=== PATIENT | female | born 1970 | race Caucasian/White ===

== ENCOUNTER 2023-05-16 13:07 | Emergency (ER) | payer MEDICARE, MEDICAID, SELFPAY ==
[2023-05-16 13:56] VITALS: BP 126/77; PULSE 70; RESP 18; TEMP 36.1; O2SAT 99; BMI 31.2
[2023-05-16] MEDS: Acetaminophen 325 MG TABLET 975 MG PO (14:30)
[2023-05-16] MEDS: Lidocaine HCl 1 % 20 ML VIAL 5 ML INFILTRATI (14:33)
--- NOTE | 2023-05-16 15:07 | ED_ITS ---
HPI - Wound/Laceration General Chief Complaint: Wound/Laceration Stated Complaint: Head Lac 05/16/23 Time Seen by Provider: 05/16/23 14:18 Source: patient Mode of arrival: ambulatory Limitations: no limitations History of Present Illness HPI narrative: 52 yo female with a history of HTN well controlled on Lisinopril presents to ED for evaluation head laceration following head trauma. She reports that she walking behind her car when the door of the truck suddenly closed and struck her on top of her head. She denies fall or LOC. She poured Bacardi ETOH on the wound prior to her arrival. Vaccination UTD, with recent Tdap recevied within the last year. She denies headache, confusion, nausea or vomiting, blurry vision, chest pain, or SOB. Onset (ago): hour(s) Location: scalp (Hairline) Place: home Patient tetanus UTD: Yes Context: accidental Associated symptoms: pain Treatments prior to arrival: other (Bacardi ETOH was poured on the laceration) Related Data Allergies Allergy/AdvReac Type Severity Reaction Status Date / Time atenolol Allergy Intermediate numbness Uncoded 05/16/23 14:24 Review of Systems Review of Systems: Yes all other systems are reviewed and are negative PMFSH Past Medical History Attestation statement: The following information was validated with the patient. Source: obtained from family, nursing notes reviewed and other (Patient) Social History Social History Advance Directives: No Physical Exam Vital Signs: Vital Signs: Last Vital Signs Temp 97 F 05/16/23 13:56 Pulse 70 05/16/23 13:56 Resp 18 05/16/23 13:56 BP 126/77 05/16/23 13:56 Pulse Ox 99 05/16/23 13:56 O2 Del Method Room Air 05/16/23 13:56 BMI result Body Mass Index 31.2 Const: General: comfortable, no acute distress, alert and awake Orientation/consciousness: patient oriented x3 HEENT: Head: Yes hematoma and Yes laceration (Mid hairline ) Ears: external ears normal Eyes: EOM: EOMs intact bilaterally Neck: Neck: Yes supple Resp: Effort & Inspection: normal respiratory effort and able to speak in complete sentences Skin: Trauma: laceration (Mid hairline ) Neuro: General: patient oriented x3 Cognition (Neuro): normal cognition Medications Administered Discontinued Medications Generic Name Dose Route Start Last Admin Trade Name Freq PRN Reason Stop Dose Admin Acetaminophen 975 mg 05/16/23 14:25 05/16/23 14:30 Acetaminophen 325 Mg Tablet PO 05/16/23 14:26 975 mg ONCE ONE Administration Ibuprofen 600 mg 05/16/23 14:25 05/16/23 14:31 Ibuprofen 600 Mg Tablet PO 05/16/23 14:26 Not Given ONCE ONE Lidocaine HCl 5 ml 05/16/23 14:25 05/16/23 14:33 Lidocaine Hcl 1 % 20 Ml Vial INFILTRATI 05/16/23 14:26 5 ml ONCE ONE Administration Oxycodone HCl 5 mg 05/16/23 15:03 05/16/23 15:08 Oxycodone Hcl Immed Release 5 Mg Tablet PO 05/16/23 15:04 5 mg ONCE ONE Administration Medical Decision Making Medical Decision Making MDM Narrative: 52 year old demale here for evaluation of a head injury. Sustained a lacteration to her hairline. No LOC, but she was dizziness. She is not on a blood thinner. No other injuries. Upon arrival she is no NAD, well appearing, vitals signs stable. On exam she 3cm laceration not actively bleeding. Tetanus is UTD. Head CT unnecessary according to [place] head CT rule. Wound was repaired she tolerated well. Pain was treated and she is stable to be discharged. Differential Diagnosis Differential Diagnoses: The differential diagnosis associated with the presentation includes Head laceration Head contusion Head fracture Head hematoma Concussion Tests considered The following testing was considered but not selected: Considered CT head but not indicated Prescription Management I considered prescription management with: Pain Medication Chronic Conditions Patient?s care impacted by: Hypertension Procedures Laceration Laceration 1: Site: scalp (Mid hairline) Size (cm): 3 Description: linear Depth: simple, single layer Local Anesthetic: lidocaine 1% Amount of anesthesia used (mL): 3 Pre-repair: irrigated extensively Skin layer closed with: other Size (cm): 5-0 Number of sutures: 3 Technique: simple, interrupted Critical Care Time Critical Care Time Critical Care Time: No Discharge Plan Discharge Clinical Impression: Laceration of head Patient Disposition: Home, Self-Care Instructions: Head Laceration (ED) Additional Instructions: You will need your stitches out in 5-7 days. See you doctor for this or come back to the ER and we will remove them. Do not get wet for 24 hours, after that you can briefly wash with soap and water then pat dry. Use bacitracin 2x per day. Keep wound clean and covered. Do not submerge in water, no swimming. Take Motrin or Tylenol for pain as needed If you develop signs of infection including increased pain, swelling, redness or drainage of pus come back to the ER for further evaluation.
[2023-05-16] MEDS: oxyCODONE HCl Immed Release 5 MG TABLET PO (15:08)
== END 2023-05-16 15:38 | disposition home or self-care (01) ==
PROVIDERS: Emergency Provider Emergency Medicine Emergency Medical Services; PCP Hospitalist
DX: S01.01XA Laceration without foreign body of scalp, initial encounter (principal); W20.8XXA Other cause of strike by thrown, projected or falling object, initial encounter; Y93.89 Activity, other specified; Y92.014 Private driveway to single-family (private) house as the place of occurrence of the external cause; Y99.9 Unspecified external cause status
CPT/HCPCS: 12002; 99283; 99284

== ENCOUNTER 2023-05-23 13:09 | Emergency (ER) | payer MEDICARE, MEDICAID, SELFPAY ==
[2023-05-23 13:36] VITALS: BP 129/87; PULSE 88; RESP 18; TEMP 36.2; O2SAT 98; BMI 32.2
--- NOTE | 2023-05-23 13:36 | ED.GENADULT ---
HPI - General Adult General Chief complaint: Wound/Laceration Stated complaint: stiches removal Time Seen by Provider: 05/23/23 13:41 Source: patient Mode of arrival: ambulatory Limitations: no limitations History of Present Illness HPI narrative: 52 yo female here for suture removal from her head. She had 3 sutures placed on 05/16. No complaints. Related Data Allergies Allergy/AdvReac Type Severity Reaction Status Date / Time atenolol Allergy Intermediate numbness Uncoded 05/16/23 14:24 Review of Systems Review of Systems: Yes all other systems are reviewed and are negative Constitutional: Constitutional: Reports no additional constitutional complaints, Denies body ache(s), Denies chills, Denies fever(s), Denies headache(s) and Denies weakness Eyes: Eyes: Reports no additional eye complaints and Denies change in vision ENT: Reports system reviewed and no additional complaints, except as documented, Denies dizziness, Denies headache(s), Denies nasal congestion, Denies nasal discharge and Denies neck pain Cardiovascular: Cardiovascular: Reports no additional cardiovascular complaints, Denies chest pain, Denies leg edema and Denies dyspnea Respiratory: Respiratory: Reports no additional respiratory complaints, Denies cough and Denies dyspnea Gastrointestinal: Gastrointestinal: Reports no additional gastrointestinal complaints, Denies abdominal pain, Denies diarrhea, Denies nausea and Denies vomiting Genitourinary: Genitourinary: Reports no additional female genitourinary complaints and Denies urinary incontinence Musculoskeletal: Musculoskeletal: Reports no additional musculoskeletal complaints, Denies back pain, Denies arthralgias, Denies joint swelling, Denies neck pain, Denies numbness and Denies tingling Integumentary/Breasts: Skin/Breast: Reports system reviewed and no additional complaints, except as docu and Denies rash Neurologic: Reports system reviewed and no additional complaints, except as documented, Denies dizziness, Denies headache(s), Denies numbness, Denies tingling and Denies weakness PMFSH Past Medical History Attestation statement: The following information was validated with the patient. Source: old records reviewed and nursing notes reviewed Social History Social History Advance Directives: No Advance Directives Information Provided: Yes Physical Exam ED Vital Signs: Vital Signs - 24 hr 05/23/23 13:36 Temperature 97.1 F Pulse Rate 88 Respiratory Rate 18 Blood Pressure 129/87 Pulse Oximetry 98 Oxygen Delivery Method Room Air BMI result Body Mass Index 32.2 Const General: cooperative, healthy appearing and comfortable Orientation/consciousness: patient oriented x3 Limitations: no limitations HENMT Head: Yes normal to inspection Head images: 1. 3 sutures present. Edges are approximated. No drainage, erythema or swelling Eyes General: appearance normal, both eyes and all related structures Neck Neck: Yes normal visual inspection Chest Chest palpation & inspection: normal inspection of the chest Resp Effort & Inspection: normal respiratory effort Cardio Peripheral pulses: Peripheral pulses 2+ throughout GI Inspection: Yes normal to inspection Back/Spine/Pelvis Thoracic/Lumbar Spine: thoracic and lumbar spine normal to inspection Skin General skin exam: no rashes or lesions noted Neuro General: patient oriented x3 and moves all extremities Procedures Procedure Narrative Procedure Narrative: Three sutures removed from the forehead. No active bleeding, erythema, drainage. Edges are approximated Medical Decision Making Medical Decision Making MDM Narrative: 52 yo female here seeking suture removal. No complaints. See procedure note. Differential Diagnosis Differential Diagnoses: The differential diagnosis associated with the presentation includes Suture removal Discharge Plan Discharge Clinical Impression: Visit for suture removal Patient Disposition: Home, Self-Care Instructions: Stitches Removal (ED) Interventions: ED Discharge Assessment Last Done: 05/23/23 13:51 Discharge Date/Time: 05/23/23 13:51
== END 2023-05-23 13:51 | disposition home or self-care (01) ==
LOC: HO.ED 13:44
PROVIDERS: Emergency Provider Emergency Medicine; PCP Hospitalist
DX: Z48.02 Encounter for removal of sutures (principal)
CPT/HCPCS: 99282

== ENCOUNTER 2023-06-02 13:10 | Emergency (ER) | payer MEDICARE, MEDICAID, SELFPAY ==
[2023-06-02 13:16] VITALS: BP 128/79; PULSE 78; RESP 18; TEMP 36.6; O2SAT 100; BMI 34.2
--- NOTE | 2023-06-02 13:17 | ED.GENADULT ---
HPI - General Adult General Chief complaint: Animal Bite Stated complaint: Lower Arm Lac 06/02/23 Time Seen by Provider: 06/02/23 13:42 Source: patient and family (patient's ) Mode of arrival: ambulatory Limitations: no limitations History of Present Illness HPI narrative: Patient is a 52 year old assigned female at with a history of HTN presenting to the emergency department today after a dog bite to the right forearm. Patient states that she got bit while trying to feed her dog. Patient states that the dog is up to date on all of his shots. Patient denies any dizziness, lightheadedness, abdominal pain, nausea, vomiting, fever, chills, blurry vision, double vision, loss of vision, chest pain, difficulty breathing, shortness of breath, back pain, night sweats, pain with urination, increased urinary frequency, increased urinary urgency, blood in her urine or stool, syncope or a near syncopal episode, bowel incontinence, bladder incontinence, bowel retention, bladder retention, or any other complaints at this time. Onset (ago): minute(s) Location: right and upper extremity Radiation: non-radiation Severity: mild Severity scale (1-10): 4 Quality: aching and dull Pain Consistency: constant Relieving factors: none Exacerbating factors: none Associated symptoms: denies other symptoms Treatments prior to arrival: none Related Data Previous Rx's Medication Instructions Recorded amoxicillin 875 mg-potassium 1 tab PO BID 10 days #20 tabs 06/02/23 clavulanate 125 mg tablet Allergies Allergy/AdvReac Type Severity Reaction Status Date / Time atenolol Allergy Intermediate numbness Uncoded 05/16/23 14:24 Review of Systems Constitutional: Constitutional: Reports no additional constitutional complaints, Denies chills, Denies fever(s) and Denies night sweats Eyes: Eyes: Reports no additional eye complaints, Denies blurry vision, Denies change in vision, Denies diplopia, Denies eye discharge, Denies loss of vision and Denies eye pain ENT: Denies dizziness Cardiovascular: Cardiovascular: Reports no additional cardiovascular complaints, Denies chest pain, Denies lightheadedness, Denies Loss of Consciousness and Denies dyspnea Respiratory: Respiratory: Reports no additional respiratory complaints and Denies dyspnea Gastrointestinal: Gastrointestinal: Reports no additional gastrointestinal complaints, Denies abdominal pain, Denies melena, Denies hematochezia, Denies change in bowel habits and Denies change in stool character Genitourinary: Genitourinary: Denies hematuria, Denies urinary frequency, Denies dysuria, Denies urinary incontinence, Denies urinary hesitancy and Denies urinary urgency Musculoskeletal: Musculoskeletal: Reports no additional musculoskeletal complaints, Denies numbness and Denies tingling Comments: dog bite to right forearm Neurologic: Denies dizziness, Denies loss of vision, Denies numbness and Denies tingling Psychiatric: Psychiatric: Reports no additional psychiatric complaints Endocrine: Endocrine: Reports no additional endocrine complaints Hematologic/Lymphatic: Hematologic/Lymphatic: Reports no additional hematologic/lymphatic complaints Allergic/Immunologic: Allergic/Immunologic: Reports no additional allergic/immunologic complaints PMFSH Past Medical History Attestation statement: The following information was validated with the patient. Source: old records reviewed, obtained from family (patient's provided additional history and confirmed the history provided by the patient.) and nursing notes reviewed Social History Social History Advance Directives: No Advance Directives Information Provided: No Physical Exam ED Vital Signs: Vital Signs - 24 hr 06/02/23 13:16 Temperature 97.8 F Pulse Rate 78 Respiratory Rate 18 Blood Pressure 128/79 Pulse Oximetry 100 Oxygen Delivery Method Room Air BMI result Body Mass Index 34.2 Const General: cooperative, no acute distress, alert and awake Nutritional Appearance: well nourished Orientation/consciousness: patient oriented x3 Limitations: no limitations HENMT Head: Yes normal to inspection and Yes atraumatic Ears: hearing grossly normal bilaterally and external ears normal General nose exam: Normal external nose present, no nasal discharge noted and no epistaxis Face and sinus: Yes normal facial exam, No abrasion and No laceration Mouth: Normal oral and palatal mucosa present, no drooling and no muffled voice Eyes General: appearance normal, both eyes and all related structures Periorbital: periorbital findings normal Eyelids: Yes eyelids normal Conjunctivae: conjunctivae normal Pupils: Equal, round and reactive pupils present EOM: EOMs intact bilaterally Neck Neck: Yes normal visual inspection, Yes full ROM and Yes no lymphadenopathy Chest Chest palpation & inspection: normal inspection of the chest Resp Effort & Inspection: normal respiratory effort and able to speak in complete sentences GI Inspection: Yes normal to inspection Neuro General: patient oriented x3 and moves all extremities Cranial nerves: Yes Equal, round and reactive pupils present Cognition (Neuro): normal cognition Motor exam (neuro): 5/5 motor strength present throughout Sensory Exam: Normal double simultaneous stimulation for sensation Coordination: [id number] test normal Extrem Other: 3 small puncture wounds to the right upper forearm, all smaller than 1cm, none gaping and none bleeding. General: Yes full ROM and Yes capillary refill normal Psych Appearance: grossly normal Mental Status: mental status grossly normal Affect: normal affect Attitude: cooperative Thought process: Normal thought process present Thought content: Normal thought content present Insight: Good insight present (Psych) Course Course Course Narrative: This is a rapid medical exam: Additional HPI, ROS, PE not included below will be deferred to primary provider. Patient is a 52-year-old female presenting to the emergency department with dog bite to right forearm. States she got her arm too close to the food bowl. States dog was abandoned for a week in [place] so is food aggressive. States dog is UTD on vaccinations. Tetanus is UTD. Medical Decision Making Medical Decision Making [facility] Narrative: Patient is a 52 year old assigned female at with a history of HTN presenting to the emergency department today after being bit by a dog. Patient's physical exam was as noted in the physical exam portion of this chart. I explained my physical exam findings to the patient and the patient's . I answered all questions asked by the patient and the patient's . I thoroughly cleaned the patient's puncture wounds and dressed them appropriately. I stressed the importance of the patient taking her medication as prescribed. I stressed the importance of the patient following up with her primary care provider. I stressed the importance of the patient returning to the emergency department immediately if her symptoms were to worsen or if she were to develop any dizziness, shortness of breath, difficulty breathing, chest pain, blurry vision, loss of vision, nausea, vomiting, abdominal pain, fever, chills, back pain, or any other complaints. Patient and the patient's verbalized agreement and understanding with this treatment plan and discharge. Differential Diagnosis Differential Diagnoses: The differential diagnosis associated with the presentation includes Dog bite Puncture wound Laceration Abrasion Independent Historian Clinical information obtained from an independent historian. History obtained from or confirmed by: Spouse (patient's provided additional history and confirmed the history provided by the patient. ) Discharge Plan Discharge Clinical Impression: Dog bite Patient Disposition: Home, Self-Care Instructions: Animal Bite (ED) Additional Instructions: Perform daily wound checks and dressing changes. Follow up with your primary care provider. Return to the emergency department immediately if your symptoms worsen or if you develop any dizziness, shortness of breath, difficulty breathing, chest pain, blurry vision, loss of vision, nausea, vomiting, abdominal pain, fever, chills, back pain, or any other complaints. Prescriptions: New amoxicillin-pot clavulanate 875-125 mg tablet 1 tab PO BID 10 Days Qty: 20 0RF Referrals: Stephanie Acevedo MD [Primary Care Provider] - Interventions: ED Discharge Assessment Last Done: 06/02/23 14:27 Discharge Date/Time: 06/02/23 14:27 Print Language: Kittitian
== END 2023-06-02 14:27 | disposition home or self-care (01) ==
PROVIDERS: Emergency Provider Emergency Medicine Emergency Medical Services; PCP Hospitalist
DX: S51.851A Open bite of right forearm, initial encounter (principal); M79.601 Pain in right arm; W54.0XXA Bitten by dog, initial encounter; Y93.9 Activity, unspecified; Y92.9 Unspecified place or not applicable; Y99.9 Unspecified external cause status
CPT/HCPCS: 99282; 99283

== ENCOUNTER 2024-01-08 10:45 | Outpatient (AMB) | payer MEDICARE, MEDICAID, SELFPAY ==
--- NOTE | 2024-01-08 11:33 | MHC.OFFWIV ---
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 Patient noticed a small rash on the right side of the abdomen. Does not recall or noticed any tick bite. Rash is itchy. PFSH Social History Patient Tobacco Use Status: Never used Tobacco Physical Exam Vital Signs: Last Vital Signs Temp 97.4 F 01/08/24 11:36 Pulse 65 01/08/24 11:36 BP 130/80 01/08/24 11:36 Pulse Ox 98 01/08/24 11:36 Oxygen Delivery Method Room Air 01/08/24 11:36 BMI result Body Mass Index 35.7 Skin Other: Abdomen: Small 2 cm circular rash around a papule. No tenderness. Assessment & Plan Assessment & Plan (1) Rash: Code(s): R21 - Rash and other nonspecific skin eruption Plan: Very unlikely a tick bite. However lyme testing in three weeks. No abx needed. Hydrocortisone cream for itching prescribed. Orders: Orders Lyme IgG/IgM w/reflex to WB 01/29/24 R21 - Rash and other nonspecific skin eruption Coding Level of Care Code New Pt Level 3 (23376) Diagnoses Rash R21
[2024-01-08 11:36] VITALS: BP 130/80; PULSE 65; TEMP 36.3; O2SAT 98; BMI 35.7
== END 2024-01-08 12:06 | disposition home or self-care (01) ==
PROVIDERS: Visit Provider Internal Medicine
DX: R21 Rash and other nonspecific skin eruption (principal)
CPT/HCPCS: 99203

== ENCOUNTER → 2024-03-18 08:10 | Outpatient (BNVA) | payer MEDICARE, MEDICAID, SELFPAY | PROVIDERS: PCP Nurse Practitioner Family; Visit Provider Physician Assistant Surgical ==

== ENCOUNTER 2024-04-12 08:12 | Outpatient (AMB) | payer MEDICARE, MEDICAID, SELFPAY ==
--- NOTE | 2024-04-12 08:13 | MHC.OFFWIV ---
Intake Vital Signs 04/12/24 08:14 Height 5 ft Weight 203 lb BMI 39.6 BP 104/72 Blood Pressure Location Lt brachial Position Sitting Pulse 78 Pulse Source Pulse Oximeter Temp 98.2 F Temp Source Oral Pulse Oximetry (%) 97 Oxygen Delivery Method Room Air Intake Visit Reasons: EP Lump LT leg/pain behind RT knee/Asthma Intake Note: pt here c/o lump on LT foot x 1 month, pain behind RT knee x 1 week, Asthma symptoms. Hurts more when going up/down stairs Patient Tobacco Use Status: Never used Tobacco Allergies atenolol Allergy (Intermediate, Uncoded 04/12/24 08:14) numbness Do you need a note to return to daycare/school/sports/work: No HPI HPI Comments History of Present Illness Details Patient is a 53 year old female past medical history of asthma who is currently switching primary care doctors to a PCP at this clinic. She has multiple complaints. Her 1st complaint is that she has been unable to refill her asthma medications, she states she takes an albuterol inhaler, albuterol nebulizers and the Breo inhaler twice daily. She is also complaining of a lump on her left foot, she states she was told it was a fibroma, as she has a hx of these and she has seen a surgeon about it, she was told to try diclofenac gel which she states she has not tried yet. Her 3rd complaint is pain behind her right knee x several weeks which is getting worse, she states it feels like it is going to give out on her because it hurts so much. She has not tried taking any medications for this or wrapping it. [facility] Social History (System 01/23/24 @ 12:55 by Ana Solares) Patient Tobacco Use Status: Never used Tobacco Review of Systems Const All systems reviewed & are unremarkable except as noted in HPI and below Physical Exam Vital Signs: Last Vital Signs Temp 98.2 F 04/12/24 08:14 Pulse 78 04/12/24 08:14 BP 104/72 04/12/24 08:14 Pulse Ox 97 04/12/24 08:14 Oxygen Delivery Method Room Air 04/12/24 08:14 BMI result Body Mass Index 39.6 Const General: cooperative, healthy appearing, comfortable, no acute distress and well developed Orientation/consciousness: patient oriented x3 Limitations: no limitations HEENT Head: Yes normal to inspection Eyes General: appearance normal, both eyes and all related structures Neck Neck: Yes normal visual inspection and Yes full ROM Resp Effort & Inspection: normal respiratory effort and able to speak in complete sentences Skin General skin exam: no rashes or lesions noted Neuro General: patient oriented x3 Extrem Right lower extremity: knee Details: tenderness (Posterior), swelling (Posterior) and normal ROM Left lower extremity: foot (4cm round lump on mid dorsal foot, no erythema or signs of infection noted) Assessment & Plan Assessment & Plan (1) Asthma: Code(s): J45.909 - Unspecified asthma, uncomplicated Qualifiers: Asthma complication type: unspecified Asthma persistence: unspecified Asthma severity: unspecified severity Qualified Code(s): J45.909 - Unspecified asthma, uncomplicated Plan: Refilled inhalers for 30 days with [facility] via telephone, albuterol pump, duoneb nebs, Advair 115-21 (they had no records of the patient being on a Breo); patient to make appointment to see a PCP within this office REINALDO. (2) Mujica's cyst of knee: Code(s): M71.20 - Synovial cyst of popliteal space [Mujica], unspecified knee Qualifiers: Laterality: right Qualified Code(s): M71.21 - Synovial cyst of popliteal space [Mujica], right knee Plan: Advised RICE, if no improvement, we can send to Orthopedics for evaluation (3) Fibroma of foot: Code(s): D21.20 - Benign neoplasm of connective and other soft tissue of unspecified lower limb, including hip Qualifiers: Laterality: left Qualified Code(s): D21.22 - Benign neoplasm of connective and other soft tissue of left lower limb, including hip Plan: Recommended to follow up with her surgeon if the diclofenac gel does not help. Plan Patient also enquiring about Lyme disease results from January, shared they were negative. Medications: Discontinued amoxicillin-pot clavulanate 875-125 mg Discontinued Reason: Patient Completed Course 1 tab PO BID 10 days 20 tabs 0RF Coding Level of Care Code New Pt Level 4 (39967) Diagnoses Asthma, unspecified asthma severity, unspecified whether complicated, unspecified whether persistent J45.909 Asthma complication type: unspecified Asthma persistence: unspecified Asthma severity: unspecified severity Synovial cyst of right knee M71.21 Laterality: right Fibroma of left foot D21.22 Laterality: left
[2024-04-12 08:14] VITALS: BP 104/72; PULSE 78; TEMP 36.8; O2SAT 97; BMI 39.6
== END 2024-04-12 09:16 | disposition home or self-care (01) ==
PROVIDERS: PCP Nurse Practitioner Family; Visit Provider Physician Assistant
DX: J45.909 Unspecified asthma, uncomplicated (principal); M71.21 Synovial cyst of popliteal space [Baker], right knee; D21.22 Benign neoplasm of connective and other soft tissue of left lower limb, including hip
CPT/HCPCS: 99204

== ENCOUNTER 2024-04-15 10:49 | Outpatient (AMB) | payer MEDICARE, MEDICAID, SELFPAY ==
[2024-04-15 11:09] VITALS: BP 110/76; PULSE 68; O2SAT 98; BMI 39.4
--- NOTE | 2024-04-15 11:09 | A.OFFPC_ITS ---
Vital Signs 04/15/24 11:09 Height 5 ft Weight 202 lb BMI 39.4 BP 110/76 Blood Pressure Location Rt brachial Position Sitting Pulse 68 Pulse Source Pulse Oximeter Pulse Oximetry (%) 98 Oxygen Delivery Method Room Air Intake Visit Reasons: Est Care LT foot Lump/pain behind RT Knee Intake Note: Pt here for f/u from walk-in visit for LT foot lump, RT knee pain Allergies atenolol Allergy (Intermediate, Uncoded 08/07/24 01:00) numbness Medication List - Last Reconciled 08/07/24 by Sandra Salmeron MD albuterol sulfate 90 mcg/actuation 1 puff inhalation QID fluticasone propion-salmeterol 250-50 mcg/dose (Advair Diskus) 1 inh inhalation BID semaglutide (weight loss) 1 mg (0.5 mL) subcut QWEEK Tobacco use date assessed: 04/15/24 Dental Screening Dental Screen Date: 04/15/24 HPI HPI Comments History of Present Illness Details Patient is a 53-year-old female who I am meeting for the 1st time. Patient has complaint of fibromas of bilateral feet. As per patient , she has had surgery on right foot to remove this. States she now has a fibroma on her left foot dorsal aspect over the metatarsal. This is making it difficult to walk. unable to dorsiflex and to put on shoes. 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 Utilize diclofenac sodium with no relief. Patient also has palpable mass behind her right knee. States that the mass has been there for several months, however it is become more rigid and is causing discomfort. 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 Has family history of clotting disorder, will order stat ultrasound today. [facility] Medical History Anxiety Hypertension Surgical History Hx of breast reduction, elective History of tubal ligation H/O liposuction of abdomen History of cataract surgery Family History Mother Clot Social History Housing: House Patient Tobacco Use Status: Never used Tobacco service: No Current occupational status: employed Current occupational exposures/hazards: No Cognitive needs: No Hearing needs: No Vision needs: No Questionnaire PHQ-9 Over the last 2 weeks, how often have you been bothered by any of the following problems? 1. Little interest or pleasure in doing things: several days 2. Feeling down, depressed, or hopeless: several days 3. Trouble falling or staying asleep, or sleeping too much: nearly every day 4. Feeling tired or having little energy: more than half the days 5. Poor appetite or overeating: nearly every day 6. Feeling bad about yourself - or that you are a failure or have let yourself or your family down: not at all 7. Trouble concentrating on things, such as reading the newspaper or watching television: nearly every day 8. Moving or speaking so slowly that other people could have noticed. Or the opposite - being so fidgety or restless that you have been moving around a lot more than usual: several days 9. Thoughts that you would be better off or of hurting yourself in some way: not at all Total score: 14 Depression Screening Interpretation: Positive Depression Screening Follow-up: Existing condition and In treatment (Establish care with psychiatrist) Depression Screening Done: Yes 47423 - PHQ-9 Billing: Yes Source: Developed by Drs. Ky Reza, Vinita Ulloa, Cem Alcantara and colleagues, with an educational ayush from [employer]. AUDIT C Alcohol Use Questionnaire (AUDIT-C) 1. How often do you have a drink containing alcohol?: Never Total Score: 0 POORNIMA-7 AMB Questionnaire POORNIMA-7 Date POORNIMA - 7 assessed: 04/15/24 Feeling nervous, anxious, or on edge: 3 = Nearly every day Not being able to stop or control worryin = Nearly every day Worrying too much about different things: 2 = More than half the days Trouble relaxin = More than half the days Being so restless that it is hard to sit still: 2 = More than half the days Becoming easily annoyed or irritable: 1 = Several days Feeling afraid as if something awful might happen: 3 = Nearly every day Total POORNIMA-7 score (0-4 normal; 5-9 mild; 10-14 moderate; 15-21 severe): 16 Source: Developed by Drs. Ky Reza, Vinita Ulloa, Cem Alcantara and colleagues, with an educational ayush from [employer]. POORNIMA-7 Assessment Billing POORNIMA-7 Assessment Tool: POORNIMA-7 Assessment 18022 (Establish care with psychiatrist) Review of Systems Const All systems reviewed & are unremarkable except as noted in HPI and below Physical exam (Primary Care) Vital Signs: Last Vital Signs Pulse 68 04/15/24 11:09 BP 110/76 04/15/24 11:09 Pulse Ox 98 04/15/24 11:09 Oxygen Delivery Method Room Air 04/15/24 11:09 Care Plan Goal for BP management: Blood pressure is controlled. BMI result Body Mass Index 39.4 Tobacco/Smoking Status: Tobacco use Status Tobacco use date assessed 04/15/24 04/15/24 11:11 Patient Tobacco Use Status Never used Tobacco 04/15/24 11:11 PHQ-9: PHQ-9 Score PHQ-9: Total score 14 04/15/24 13:18 Depression Screening Interpretation: Positive Depression Screening Follow-up: Existing condition and In treatment (Establish care with psychiatrist) HENMT Head: Yes normocephalic Face and sinus: Yes face symmetric Mouth: Normal oral and palatal mucosa present, oropharynx normal and moist mucous membranes Extrem Other: Firm nontender nodule on dorsal aspect of left, difficulty with dorsiflexion of left foot Forearm slightly tender fluctuant mass on right popliteal fossa Coding Level of Care Code Est Pt Level 3 (06497) Diagnoses Fibroma of left foot D21.22 Laterality: left Synovial cyst of right knee M71.21 Laterality: right Additional Codes POORNIMA-7 Assessment Billing - POORNIMA-7 Assessment Tool: POORNIMA-7 Assessment 66875 ([id number]) Time Spent (min) 34
== END 2024-04-15 13:32 | disposition home or self-care (01) ==
PROVIDERS: PCP Nurse Practitioner Family; Visit Provider Nurse Practitioner Primary Care
DX: D21.22 Benign neoplasm of connective and other soft tissue of left lower limb, including hip (principal); M71.21 Synovial cyst of popliteal space [Baker], right knee
CPT/HCPCS: 99213

== ENCOUNTER 2024-04-15 12:19 | Outpatient (REF) | payer MEDICARE, MEDICAID, SELFPAY ==
--- NOTE | ~2024-04-15 | US_ITS ---
EXAMINATION: US VENOUS ULTRASOUND WITH DOPPLER LOWER EXTREMITY, RIGHT CLINICAL INFORMATION: Localized edema - RIGHT LEG R/O DVT COMPARISON: None available. TECHNIQUE: Ultrasound of the deep veins is performed from the hip to the calf with compression sonography and color and pulse Doppler assessment. Spectral analysis with color-flow imaging is performed. FINDINGS: There is normal venous compression and respiratory variation and augmented flow. The visualized common femoral vein, superficial femoral vein, profunda femoral vein, popliteal vein, and the trifurcation region shows no evidence of deep venous thrombosis. There is no significant popliteal fossa cyst. If the patient's symptoms persist, followup ultrasound in 5 days 7 days might be of value to exclude proximal propagation from a non-visualized calf vein. US/US venous duplex LE RT IMPRESSION: No DVT demonstrated in the right lower extremity.
== END 2024-04-15 12:20 | disposition home or self-care (01) ==
LOC: HO.HMGCX 12:19
PROVIDERS: PCP Nurse Practitioner Family; Visit Provider Nurse Practitioner Primary Care
DX: R60.0 Localized edema (principal); M79.604 Pain in right leg
CPT/HCPCS: 93971

== ENCOUNTER 2024-05-06 09:26 | Outpatient (AMB) | payer MEDICARE, MEDICAID, SELFPAY ==
--- NOTE | 2024-05-06 09:29 | MHC.PC.OV ---
Vital Signs 05/06/24 09:32 Height 5 ft Weight 201 lb BMI 39.3 BP 124/84 Blood Pressure Location Rt brachial Position Sitting Pulse 56 Pulse Source Pulse Oximeter Pulse Oximetry (%) 98 Oxygen Delivery Method Room Air Intake Visit Reasons: Follow up 1 month Intake Note: pt is here for her 1 month f/u Allergies atenolol Allergy (Intermediate, Uncoded 05/06/24 09:50) numbness Medication List - Last Reconciled 05/06/24 by SONU Burdick albuterol sulfate 90 mcg/actuation 2 puffs inhalation Q6H PRN atomoxetine 18 mg PO QAM bupropion HCl XL 300 mg PO DAILY cyclobenzaprine 10 mg PO TID PRN diclofenac sodium 1% (Arthritis Pain (diclofenac)) 2 grams topical QID fluticasone propion-salmeterol 115-21 mcg/actuation (Advair HFA) 2 puffs inhalation BID furosemide 20 mg PO DAILY hydrocortisone 2.5% 1 appl topical BID PRN hydroxyzine HCl 25 mg PO DAILY PRN ipratropium-albuterol 0.5 mg-3 mg(2.5 mg base)/3 mL 3 mL inhalation Q6-8H lisinopril-hydrochlorothiazide 10-12.5 mg 1 tab PO DAILY Tobacco use date assessed: 05/06/24 Dental Screening Dental Screen Date: 04/15/24 HPI HPI Comments History of Present Illness Details Patient is a 53-year-old female in today for follow-up patient recently got labs at [facility] been sent us the results. Also following up on fibroma of patient's for bilateral feet, she states she has not heard from Orthopedics or Podiatry, will put in referrals today. Also met with patient today in regard to starting weight loss medication. Patient has seen medical weight surgery and is a candidate for bariatric surgery however she states she would like to try a less invasive method before she attempts the surgical route. [facility] Medical History Anxiety Hypertension Surgical History Hx of breast reduction, elective History of tubal ligation H/O liposuction of abdomen History of cataract surgery Family History Mother Clot Social History Patient Tobacco Use Status: Never used Tobacco Questionnaire POORNIMA-7 AMB Questionnaire POORNIMA-7 Date POORNIMA - 7 assessed: 04/15/24 Source: Developed by Drs. Ky Reza, Vinita Ulloa, Cem Alcantara and colleagues, with an educational ayush from [employer]. Review of Systems Const All systems reviewed & are unremarkable except as noted in HPI and below Physical exam (Primary Care) Vital Signs: Last Vital Signs Pulse 56 05/06/24 09:32 BP 124/84 05/06/24 09:32 Pulse Ox 98 05/06/24 09:32 Oxygen Delivery Method Room Air 05/06/24 09:32 BMI result Body Mass Index 39.3 Tobacco/Smoking Status: Tobacco use Status Tobacco use date assessed 05/06/24 05/06/24 09:36 Patient Tobacco Use Status Never used Tobacco 05/06/24 09:29 Const Other: Appearance: Alert.? Oriented X3.? No acute distress.? Head: Normocephalic, atraumatic, no step-offs or deformities CVS: Normal heart rate and rhythm.? Pulses normal.? Respiratory: No respiratory distress.? Breath sounds normal.? Abdomen: Soft and nontender.? Skin: Skin warm and dry.? Normal skin color.? Normal skin turgor.? Extremities: Scant lower extremity edema bilaterally. 5/5 strength to bilateral upper and lower extremities. +Fibroma of left foot. Neuro: Oriented X 3.? No motor deficit.? No sensory deficit. CN 2-12 intact Assessment and Plan Assessment & Plan (1) Fibroma of foot: Comment: Will refer patient to Podiatry. Patient can continue to use diclofenac sodium and Tylenol. Use comfortable footwear. Will also provide ortho referral. Code(s): D21.20 - Benign neoplasm of connective and other soft tissue of unspecified lower limb, including hip Qualifiers: Laterality: left Qualified Code(s): D21.22 - Benign neoplasm of connective and other soft tissue of left lower limb, including hip (2) Obesity (BMI 30-39.9): Comment: Will order semaglutide. Patient has no family history or personal history of thyroid cancer. She has been educated on the side effects of the medication. Code(s): E66.9 - Obesity, unspecified Plan: Draw labs Plan Follow up in 1 month after first administration of medicaiton. Orders: Referrals Orthopedics Referral D21.22 - Benign neoplasm of connective and other soft tissue of left lower limb, including hip Medications: New semaglutide (weight loss) (Wegovy) administer weeks 1 through 4 of therapy 0.25 mg (0.5 mL) subcut QWEEK 2 mL 0RF Coding Level of Care Code Est Pt Level 3 (99156) Diagnoses Fibroma of left foot D2. Laterality: left Obesity (BMI 30-39.9) E66.9 Time Spent (min) 26
[2024-05-06 09:32] VITALS: BP 124/84; PULSE 56; O2SAT 98; BMI 39.3
== END 2024-05-06 10:21 | disposition home or self-care (01) ==
PROVIDERS: PCP Nurse Practitioner Family; Visit Provider Nurse Practitioner Primary Care
DX: D21.22 Benign neoplasm of connective and other soft tissue of left lower limb, including hip (principal); E66.9 Obesity, unspecified; Z68.39 Body mass index [BMI] 39.0-39.9, adult
CPT/HCPCS: 99213

== ENCOUNTER 2024-07-22 08:31 | Outpatient (AMB) | payer MEDICARE, MEDICAID, SELFPAY ==
--- OUTSIDE RECORDS SUMMARY | 2024-07-22 08:32 | XMS_ITS | Patient Health Record ---
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 Role Phone Neo Denny Primary Care Provider Unav ailable Carol Shaw Unavailable [phone] ALLERGIES Allergen (clinical drug ingredient) Drug/Non Drug Allergy documented on EMR Reaction Allergy Type Onset Date Status atenolol Atenolol numbness Drug Allergy Active REASON FOR REFERRAL No Information MEDICATIONS Medication SIG (Take, Route, Frequency, Duration) Notes Start Date End Date Status Phentermine HCl 37.5 MG 1 capsule Orally Once a day Active Albuterol Sulfate HFA 108 (90 Base) MCG/ACT 1 puff as needed Inhalation every 4 hrs Active Topamax 50 MG 1 tablet Orally Twic e a day Active Probiotic Active Ipratropium Hines Active Flonase Allergy Relief 50 MCG/ACT 1 spray in each nostril Nasally Once a day for 30 day(s) Active Lisinopril-hydroCHLOROthiaz yessenia 10-12.5 MG 1 tablet Orally Once a day for 30 day(s) Active Lasix 20 MG 1 tablet Orally Once a day Active Cod Liver Oil Active Breo Ellipta Active Physical Therapy . . . 2-3x/week for 3- 4 weeks 06/29/2021 Active DULoxetine HCl Activ e Cymbalta 60 MG 1 capsule Orally Onc e a day Active IMMUNIZATIONS Vaccine Route Administration Date Status Comme nts COVID-19 Moderna Vaccine Unknown 11/03/2021 Administered First Dose: 04/14/21 Second Dose: 03/13/21 Influenza Unknown 11/03/2021 Administered SOCIAL HISTORY Tobacco Use: Social History Observation Description Date Details (start date - stop date) Never Smoker NA - NA Sex Assigned At : Social History Observation Description Sex Assigned At Unknown Tobacco Use/Smoking Question Answer Notes Are you a: nonsmoker Additional Findings: Tobacco Non-User Current no n-smoker Alcohol Screen Question Answer Notes Did you have a drink containing alcohol in the p ast year? No Points 0 Interpretation Negative Tobacco use other than smoking: Question Answer Notes Are you an other tobacco user? No PLAN OF TREATMENT Pending Test Test Name Order Date X ray : Foot, left 3V 06/29/2021 X ray : Foot, right 3V 06/29/2021 MEDICAL (GENERAL) HISTORY Medical History History ICD Code Anxiety asthma Back,Hip,and Knee pain Cataracts Depression Headaches/Migraines High blood pressure Chicken pox post nasal drip Cpap Sleep apnea Surgical History Surgery Date(Month/Year) breast reduction tubal ligation Oblation cataract surgery- B/L cyst removal- from tail bone tonsillectomy and adenoidectomy wisdom teeth extraction liposuction Left plantar fascitomy 08/25/2021
--- NOTE | 2024-07-22 08:40 | AM.OFFWIN_ITS ---
Intake Vital Signs 07/22/24 08:41 Height 5 ft Weight 203 lb BMI 39.6 BP 122/84 Blood Pressure Location Lt brachial Position Sitting Pulse 66 Pulse Source Pulse Oximeter Temp 98.1 F Temp Source Oral Pulse Oximetry (%) 98 Oxygen Delivery Method Room Air Intake Visit Reasons: EP UTI? Intake Note: pt c/o urinary frequency, burning, discomfort. Started 4 days ago. Patient Tobacco Use Status: Never used Tobacco Allergies atenolol Allergy (Intermediate, Uncoded 07/22/24 08:49) numbness Do you need a note to return to daycare/school/sports/work: No HPI HPI Comments History of Present Illness Details Patient is a 53-year-old female complaining of 4 days of increased krystyna quency of urination, burning with urination, and increased urgency of urination. She denies any fevers, low back pain or blood in her urine. She did take some Pyridium and azo for symptomatic relief. She also has increased her fluids. [facility] Medical History Anxiety Hypertension Surgical History Hx of breast reduction, elective History of tubal ligation H/O liposuction of abdomen History of cataract surgery Family History Mother Clot Social History Patient Tobacco Use Status: Never used Tobacco Review of Systems Const All systems reviewed & are unremarkable except as noted in HPI and below Physical Exam Vital Signs: Last Vital Signs Temp 98.1 F 07/22/24 08:41 Pulse 66 07/22/24 08:41 BP 122/84 07/22/24 08:41 Pulse Ox 98 07/22/24 08:41 Oxygen Delivery Method Room Air 07/22/24 08:41 BMI result Body Mass Index 39.6 Const General: cooperative, healthy appearing, comfortable and no acute distress Orientation/consciousness: patient oriented x3 HEENT Head: Yes normal to inspection Ears: hearing grossly normal bilaterally General nose exam: Normal external nose present Face and sinus: Yes normal facial exam Neck Neck: Yes normal visual inspection, Yes trachea midline and Yes supple Resp Effort & Inspection: normal respiratory effort and able to speak in complete sentences GI Inspection: Yes normal to inspection Palpation (GI): Soft to palpation and Tenderness to palpation present (GI) suprapubicly Skin General skin exam: no rashes or lesions noted Neuro General: patient oriented x3 Psych Appearance: grossly normal Speech and movement: Normal speech and movement present Attitude: cooperative Thought process: Normal thought process present Insight: Good insight present (Psych) Judgement: Good judgement present (Psych) Results AMB Urinalysis, Automated UA Leukoctes 500 Shey/uL Last Edit by Oliver Bowie CMA on 07/22/24 08:53 UA Nitrite Negative Last Edit by Oliver Bowie CMA on 07/22/24 08:53 UA Urobilinogen 0.2 mg/dL Last Edit by Oliver Bowie CMA on 07/22/24 08:53 UA Protein 30 mg/dL Last Edit by Oliver Bowie CMA on 07/22/24 08:53 UA pH 6.0 Last Edit by Oliver Bowie CMA on 07/22/24 08:53 UA Blood 200 Sukhwinder/uL Last Edit by Oliver Bowie CMA on 07/22/24 08:53 UA Specific Aurora 1.020 Last Edit by Oliver Bowie CMA on 07/22/24 08:53 UA Ketone Negative Last Edit by Oliver Bowie CMA on 07/22/24 08:53 UA Bilirubin 0 mg/dL Last Edit by Oliver Bowie CMA on 07/22/24 08:53 UA Glucose 0 mg/dL Last Edit by Oliver Bowie CMA on 07/22/24 08:53 Results Reviewed Results Reviewed: Laboratory Last Values Urine pH (Auto) 6.0 07/22/24 08:52 Specific Aurora (Auto) 1.020 07/22/24 08:52 Urine Protein (Auto) 30 mg/dL 07/22/24 08:52 Glucose (UA)(Auto) 0 mg/dL 07/22/24 08:52 Urine Ketones (Auto) Negative 07/22/24 08:52 Urine Blood (Auto) 200 Sukhwinder/uL 07/22/24 08:52 Urine Nitrite (Auto) Negative 07/22/24 08:52 Urine Bilirubin (Auto) 0 mg/dL 07/22/24 08:52 Urine Urobilinogen (Auto) 0.2 mg/dL 07/22/24 08:52 Leukocyte Esterase (Auto) 500 Shey/uL 07/22/24 08:52 Assessment & Plan Assessment & Plan (1) UTI (urinary tract infection): Code(s): N39.0 - Urinary tract infection, site not specified Qualifiers: Hematuria presence: with hematuria Urinary tract infection type: acute cystitis Qualified Code(s): N30.01 - Acute cystitis with hematuria Plan: UA showing 3+ leukocyte esterase, 1+ protein and 3+ blood. We will prescribe cefuroxime. Gave red flag warning signs and when to go to the emergency department. Plan See above Orders: Orders AMB Urinalysis Automated 07/22/24 Z13.9 - Encounter for screening, unspecified Medications: New cefuroxime axetil 500 mg PO Q12H 10 tabs 0RF Coding Level of Care Code Est Pt Level 3 (33123) Diagnoses Acute cystitis with hematuria N30.01 Hematuria presence: with hematuria Urinary tract infection type: acute cystitis
[2024-07-22 08:41] VITALS: BP 122/84; PULSE 66; TEMP 36.7; O2SAT 98; BMI 39.6
== END 2024-07-22 09:33 | disposition home or self-care (01) ==
PROVIDERS: PCP Nurse Practitioner Family; Visit Provider Physician Assistant
DX: N30.01 Acute cystitis with hematuria (principal)

== ENCOUNTER → 2024-07-22 08:31 | Outpatient (BNVA) | payer MEDICARE, MEDICAID, SELFPAY | PROVIDERS: PCP Nurse Practitioner Family; Visit Provider Nurse Practitioner Family | DX: N30.01 Acute cystitis with hematuria (principal) | CPT/HCPCS: 81003; 99212 ==

== ENCOUNTER 2024-08-06 15:36 | Outpatient (AMB) | payer MEDICARE, MEDICAID, SELFPAY ==
[2024-08-06 15:44] VITALS: BP 120/82; PULSE 67; O2SAT 98; BMI 39.9
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
== END 2024-08-06 17:19 | disposition home or self-care (01) ==
PROVIDERS: PCP Nurse Practitioner Family; Visit Provider Nurse Practitioner Family
DX: I10 Essential (primary) hypertension (principal); J45.909 Unspecified asthma, uncomplicated; E55.9 Vitamin D deficiency, unspecified

== ENCOUNTER → 2024-08-06 15:36 | Outpatient (BNVA) | payer MEDICARE, MEDICAID, SELFPAY | PROVIDERS: PCP Nurse Practitioner Family; Visit Provider Nurse Practitioner Family | DX: I10 Essential (primary) hypertension (principal); J45.909 Unspecified asthma, uncomplicated; E55.9 Vitamin D deficiency, unspecified | CPT/HCPCS: 96127; 99202 ==

== ENCOUNTER 2024-08-09 07:25 | Outpatient (REF) | payer MEDICARE, MEDICAID, SELFPAY ==
[2024-08-09 10:01] LABS: MANUAL DIFF FLAG NO
[2024-08-09 10:03] LABS: Basophils Percent Auto 0.7 % (0-2); Eosinophils Absolute Auto 0.2 X10*3/uL (0.0-0.4); Eosinophils Percent Auto 4.1 % (0-4); Hemoglobin 12.3 g/dl (12.0-16.0); Imm Gran Abs Auto 0.02 X10*3/uL (0.00-0.03); Imm Gran Pct Auto 0.4 % (0.0-0.4); Lymphocytes Absolute Auto 2.4 X10*3/uL (1.2-4.9); Lymphocytes Percent Auto 43.7 % (20-40); Mean Corpuscular HGB Conc 31.5 g/dl (31.0-35.0); Mean Corpuscular Hemoglobin 23.4 pg (27.0-33.0); Mean Corpuscular Volume 74.3 fL (80.0-98.0); Mean Platelet Volume 9.5 fL (9.4-12.3); Monocytes Absolute Auto 0.4 X10*3/uL (0.1-1.2); Monocytes Percent Auto 8.1 % (2-11); Neutrophils Absolute Auto 2.3 x10*3/uL (2.0-8.3); Platelet Count 338 X10*3/uL (160-400); Red Blood Count 5.25 X10*6/uL (4.20-5.50); Red Cell Distribution Width 14.9 % (11.0-16.0); White Blood Count 5.4 X10*3/uL (4.8-10.8)
[2024-08-09 10:12] LABS: Appearance Urine Clear; Color Urine Yellow; Glucose Urine UA Negative (Negative); Leukocyte Esterase Urine Moderate (2+) (Negative); Nitrite Urine Negative (Negative); Specific Gravity - Urine 1.015 (1.005-1.025); UMIC TRIGGER UACC YES; Urine Blood Negative (Negative); Urine Ketones Negative (Negative); Urine Protein Negative (Neg-Trace)
[2024-08-09 10:17] LABS: Bacteria Urine None Seen (None Seen); Hyaline Casts Urine 0-2 /LPF (0-2); RBC Urine 0-2 /HPF (0-2); UACC Culture Trigger YES
[2024-08-09 11:02] LABS: Alanine Aminotransferase 12 U/L (0-31); Albumin Level 3.9 g/dL (3.5-5.0); Alkaline Phosphatase 84 U/L (39-117); Anion Gap 12 (12-20); Aspartate Amino Transferase 16 U/L (5-31); Bilirubin Total 0.4 mg/dL (0.0-1.0); Blood Urea Nitrogen 14 mg/dL (9-16); Calcium 9.6 mg/dL (8.4-10.2); Carbon Dioxide 25 mmol/L (22-29); Chloride 108 mmol/L (96-108); Cholesterol 163 mg/dL (<200); Estimated Glomerular Filt Rate > 60; Glucose Fasting 84 mg/dL (60-99); HDL Cholesterol 41 mg/dL (>40); LDL Cholesterol Calculated 98 mg/dL (<100); Potassium 4.3 mmol/L (3.3-5.1); Sodium 141 mmol/L (135-145); TSH reflex Free T4 2.17 uIU/mL (0.32-4.0); Total Protein 7.8 g/dL (6.5-8.0); Triglycerides 120 mg/dL (<150); Vitamin D 25-OH Total 31.1 ng/mL (>30)
== END 2024-08-09 07:26 | disposition home or self-care (01) ==
LOC: HO.HMGCLDS 07:25
PROVIDERS: PCP Nurse Practitioner Family; Visit Provider Nurse Practitioner Family
DX: I10 Essential (primary) hypertension (principal); E55.9 Vitamin D deficiency, unspecified; R82.90 Unspecified abnormal findings in urine
CPT/HCPCS: 36415; 80053; 80061; 81001; 82306; 84443; 85025; 87086

== ENCOUNTER 2024-08-30 08:05 | Outpatient (AMB) | payer MEDICARE, MEDICAID, SELFPAY ==
--- OUTSIDE RECORDS SUMMARY | 2024-08-30 08:07 | XMS_ITS | Patient Health Record ---
Author Organization [facility] Address [address] [place] [address] Support Name Relationship Address Phone Alejandro Kehinde Emergency Contact [address] [place], [place] [id number] Latrice Allen Guarantor Unknown Care Team Providers Care Licensed Physical Therapist Name Role Phone Neo Denny Primary Care Provider Unav ailable Priyankaroyal Carol Unavailable [phone] ALLERGIES Allergen (clinical drug ingredient) Drug/Non Drug [...] e a day Active Probiotic Active Ipratropium [place] Active Flonase Allergy Relief 50 MCG/ACT 1 [...] Vaccine Route Administration Date Status Comme nts Influenza Unknown 11/03/2021 Administered COVID-19 Moderna Vaccine Unknown 11/03/2021 Administered First Dose: 04/14/21 Second Dose: 03/13/21 SOCIAL HISTORY Tobacco Use: Social History Observation [...]
--- NOTE | 2024-08-30 08:11 | MHC.OFFWIV ---
Intake Vital Signs 08/30/24 08:12 Weight 199 lb BP 122/80 Blood Pressure Location Lt brachial Position Sitting Pulse 66 Pulse Source Pulse Oximeter Pulse Oximetry (%) 98 Oxygen Delivery Method Room Air Intake Visit Reasons: EP pain on RT elbow Intake Note: Patient here for right elbow pain, she states she hit her elbow on a door fram eabout 1 week ago and pain has not improved. Patient Tobacco Use Status: Never used Tobacco Allergies atenolol Allergy (Intermediate, Uncoded 08/30/24 08:13) numbness Medication List - Last Reconciled 08/30/24 by Edwina Hanna MD albuterol sulfate 90 mcg/actuation 1 puff inhalation QID fluticasone propion-salmeterol 250-50 mcg/dose (Advair Diskus) 1 inh inhalation BID semaglutide (weight loss) 1 mg (0.5 mL) subcut QWEEK Do you need a note to return to daycare/school/sports/work: No HPI EP pain on RT elbow HPI Details Patient is a 53-year-old female came in today to be evaluated for right elbow pain Patient says that she accidentally closed a door on her elbow as she was walking through She is right-handed Since then she is having pain back of elbow And is having difficulty holding cups Patient is able to move the elbow with some soreness On examination there are no skin changes Patient is sore all over the elbow Over olecranon and epicondyle She is able to move wrist fully and make a fist without any pain Neurovascular is intact I have ordered x-ray for the patient She is to start diclofenac 75 mg b.i.d. with food Further management after the x-ray report [facility] Medical History Anxiety Hypertension Surgical History Hx of breast reduction, elective History of tubal ligation H/O liposuction of abdomen History of cataract surgery Family History Mother Clot Social History Housing: House Patient Tobacco Use Status: Never used Tobacco service: No Current occupational status: employed Current occupational exposures/hazards: No Cognitive needs: No Hearing needs: No Vision needs: No Review of Systems Const All systems reviewed & are unremarkable except as noted in HPI and below Physical Exam Vital Signs: Last Vital Signs Pulse 66 08/30/24 08:12 BP 122/80 08/30/24 08:12 Pulse Ox 98 08/30/24 08:12 Oxygen Delivery Method Room Air 08/30/24 08:12 Const General: no acute distress Orientation/consciousness: patient oriented x3 Eyes General: appearance normal, both eyes and all related structures Resp Effort & Inspection: normal respiratory effort and able to speak in complete sentences Neuro General: patient oriented x3 Extrem Shoulder/upper arm images: 1. Tender all over, no skin changes, neurovascular intact, able to move elbow flexion and extension, wrist with full range of motion, able to make fist without any pain Psych Mental Status: mental status grossly normal Assessment & Plan Assessment & Plan (1) Crushed injury, elbow: Code(s): S57.00XA - Crushing injury of unspecified elbow, initial encounter Qualifiers: Encounter type: initial encounter Laterality: right Qualified Code(s): S57.01XA - Crushing injury of right elbow, initial encounter Plan Patient is a 53-year-old female came in today to be evaluated for right elbow pain Patient says that she accidentally closed a door on her elbow as she was walking through She is right-handed Since then she is having pain back of elbow And is having difficulty holding cups Patient is able to move the elbow with some soreness On examination there are no skin changes Patient is sore all over the elbow Over olecranon and epicondyle She is able to move wrist fully and make a fist without any pain Neurovascular is intact I have ordered x-ray for the patient She is to start diclofenac 75 mg b.i.d. with food Further management after the x-ray report Orders: Orders XR elbow RT 2V Today S57.00XA - Crushing injury of unspecified elbow, initial encounter Medications: New diclofenac sodium 75 mg PO BID 10 days 20 tabs 0RF pain Coding Level of Care Code Est Pt Level 3 (61830) Diagnoses Crushing injury of right elbow, initial encounter S57.01XA Encounter type: initial encounter Laterality: right
[2024-08-30 08:12] VITALS: BP 122/80; PULSE 66; O2SAT 98
== END 2024-08-30 09:06 | disposition home or self-care (01) ==
PROVIDERS: PCP Nurse Practitioner Family; Visit Provider Internal Medicine
DX: S57.01XA Crushing injury of right elbow, initial encounter (principal)

== ENCOUNTER → 2024-08-30 08:05 | Outpatient (BNVA) | payer MEDICARE, MEDICAID, SELFPAY | PROVIDERS: PCP Nurse Practitioner Family ==

== ENCOUNTER 2024-08-30 08:26 | Outpatient (REF) | payer MEDICARE, MEDICAID, SELFPAY ==
--- NOTE | ~2024-08-30 | XR_ITS ---
EXAMINATION: XR ELBOW, RIGHT CLINICAL INFORMATION: Crushing injury COMPARISON: None available. TECHNIQUE: AP, lateral, and oblique views of the right elbow. FINDINGS: No acute cortical disruption or malalignment. No metallic or radiopaque foreign body. No subcutaneous emphysema. No joint effusion. Well corticated calcification at the olecranon/triceps tendon insertion. XR/XR elbow RT min 3V IMPRESSION: No acute fracture or dislocation. Probable mild enthesopathy, triceps tendon Electronically signed by: Mitul Simmons MD 08/30/2024 08:52 AM EDT
== END 2024-08-30 08:27 | disposition home or self-care (01) ==
LOC: HO.HMGCX 08:26
PROVIDERS: PCP Nurse Practitioner Family; Visit Provider Internal Medicine
DX: S57.01XA Crushing injury of right elbow, initial encounter (principal)
CPT/HCPCS: 73080; 99212

== ENCOUNTER → 2024-08-30 08:34 | Outpatient (BNV) | payer MEDICARE, MEDICAID, SELFPAY | PROVIDERS: PCP Nurse Practitioner Family; Visit Provider Radiology Diagnostic Radiology | DX: S57.01XA Crushing injury of right elbow, initial encounter (principal) | CPT/HCPCS: 73080 ==

== ENCOUNTER 2024-09-04 09:22 | Outpatient (AMB) | payer MEDICARE, MEDICAID, SELFPAY ==
[2024-09-04 09:31] VITALS: BP 122/80; PULSE 77; O2SAT 98; BMI 38.7
--- NOTE | 2024-09-04 09:31 | MHC.PC.OV ---
Vital Signs 09/04/24 09:31 Height 5 ft Weight 198 lb 2 oz BMI 38.7 BP 122/80 Blood Pressure Location Rt brachial Position Sitting Pulse 77 Pulse Source Pulse Oximeter Pulse Oximetry (%) 98 Oxygen Delivery Method Room Air Intake Visit Reasons: F/U Elbow Allergies atenolol Allergy (Intermediate, Uncoded 08/30/24 08:13) numbness Medication List - Last Reconciled 09/04/24 by Edwina Hanna MD albuterol sulfate 90 mcg/actuation 1 puff inhalation QID fluticasone propion-salmeterol 250-50 mcg/dose (Advair Diskus) 1 inh inhalation BID semaglutide (weight loss) 1 mg (0.5 mL) subcut QWEEK Tobacco use date assessed: 09/04/24 Dental Screening Dental Screen Date: 09/04/24 Did you have a dental visit in the last 12 months?: Yes Did you have a dental problem in the last 6 months where you did not have access to dental care?: No Was dental information given to patient?: Patient has dentist HPI F/U Elbow HPI Details Patient is a 53-year-old female came in today to be evaluated for right elbow pain She was seen in walk-in clinic few days ago when she accidentally injured her elbow banging on the door Patient was prescribed diclofenac sodium 75 mg b.i.d. X-ray was done which showed no fractures Patient is feeling better pain has resolved she has full range of motion now [facility] Medical History Anxiety Hypertension Surgical History Hx of breast reduction, elective History of tubal ligation H/O liposuction of abdomen History of cataract surgery Family History Mother Clot Social History Housing: House Patient Tobacco Use Status: Never used Tobacco e-Cigarette/Vaping Use: Never Used service: No Current occupational status: employed Current occupational exposures/hazards: No Cognitive needs: No Hearing needs: No Vision needs: No Questionnaire Thrive Questionnaire Date Thrive assessed: 07/30/24 I am a: Patient What is your living situation today?: I have a steady place to live Within the past 12 months, did the food you bought not last and you didn't have the money to get more?: Sometimes True Within the past 12 months, did you worry whether your food would run out before you got money to buy more?: Often true Do you have trouble paying for medicines?: No Do you have trouble getting transportation to medical appointments?: No Do you have trouble paying your heating and electricity bill?: Yes Do you have trouble taking care of your child, family member or friend?: No Do you have trouble with day-to-day activities such as bathing, preparing meals, shopping, managing finances, etc.?: Yes Are you currently unemployed and looking for a job?: No Are you interested in more education?: No THRIVE Score: 3 AUDIT C Alcohol Use Questionnaire (AUDIT-C) 1. How often do you have a drink containing alcohol?: Never 3. How often do you have six or more drinks on one occasion?: Never Total Score: 0 Score Reviewed/Action Taken: Yes POORNIMA-7 AMB Questionnaire POORNIMA-7 Date POORNIMA - 7 assessed: 08/06/24 Source: Developed by Drs. Ky Reza, Vinita Ulloa, Cem Alcantara and colleagues, with an educational ayush from [employer]. Review of Systems Const All systems reviewed & are unremarkable except as noted in HPI and below Physical exam (Primary Care) Vital Signs: Last Vital Signs Pulse 77 09/04/24 09:31 BP 122/80 09/04/24 09:31 Pulse Ox 98 09/04/24 09:31 Oxygen Delivery Method Room Air 09/04/24 09:31 BMI result Body Mass Index 38.7 Tobacco/Smoking Status: Tobacco use Status Tobacco use date assessed 09/04/24 09/04/24 09:33 Patient Tobacco Use Status Never used Tobacco 09/04/24 09:33 e-Cigarette/Vaping Use Never Used 09/04/24 09:33 Thrive Assessment: Date of Thrive Assessment Date Thrive assessed 07/30/24 09/04/24 09:33 Const General: no acute distress Orientation/consciousness: patient oriented x3 Resp Effort & Inspection: normal respiratory effort and able to speak in complete sentences Neuro General: patient oriented x3 Extrem Elbow/forearm/wrist images: 1. No pain to palpation over olecranon process or epicondyle, full range of motion without any pain, neurovascular intact 2. Psych Mental Status: mental status grossly normal Coding Level of Care Code Est Pt Level 3 (87395) Diagnoses Crushing injury of right elbow, initial encounter S57.01XA Encounter type: initial encounter Laterality: right Assessment & Plan Assessment & Plan (1) Crushed injury, elbow: Code(s): S57.00XA - Crushing injury of unspecified elbow, initial encounter Category: Medical Qualifiers: Encounter type: initial encounter Laterality: right Qualified Code(s): S57.01XA - Crushing injury of right elbow, initial encounter Plan Patient is a 53-year-old female came in today to be evaluated for right elbow pain She was seen in walk-in clinic few days ago when she accidentally injured her elbow banging on the door Patient was prescribed diclofenac sodium 75 mg b.i.d. X-ray was done which showed no fractures Patient is feeling better pain has resolved she has full range of motion now
== END 2024-09-04 10:35 | disposition home or self-care (01) ==
LOC: HO.HMCC 09:23
PROVIDERS: PCP Nurse Practitioner Family; Visit Provider Internal Medicine
DX: S57.01XA Crushing injury of right elbow, initial encounter (principal)

== ENCOUNTER → 2024-09-04 09:22 | Outpatient (BNVA) | payer MEDICARE, MEDICAID, SELFPAY | PROVIDERS: PCP Nurse Practitioner Family; Visit Provider Internal Medicine | DX: S57 Crushing injury of elbow and forearm (principal) | CPT/HCPCS: 99212 ==

== ENCOUNTER 2025-01-01 08:12 | Outpatient (REF) | payer MEDICARE, MEDICAID, SELFPAY ==
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
--- OUTSIDE RECORDS SUMMARY | 2025-01-01 08:33 | XMS_ITS | Patient Health Record ---
Author Organization [facility] Address [address] [place] [address] Support Name Relationship Address Phone Alejandro Kehinde Emergency Contact [address] [place], [place] [id number] Latrice Allen Guarantor Unknown Care Team Providers Care Sealer Dry Cell Name Role Phone Neo Denny Primary Care Provider Unav ailable Carol Shaw Unavailable [phone] Allergies Allergen (clinical drug ingredient) Drug/Non Drug Allergy documented on EMR Reaction Allergy Type Onset Date Status atenolol Atenolol numbness Drug Allergy Active Reason For Referral No Information Medications Medication SIG (Take, Route, Frequency, Duration) Notes Start Date End Date Status Phentermine HCl 37.5 MG 1 capsule Orally Once a day Active Albuterol Sulfate HFA 108 (90 Base) MCG/ACT 1 puff as needed Inhalation every 4 hrs Active Topamax 50 MG 1 tablet Orally Twic e a day Active Probiotic Active Ipratropium [place] Active Flonase Allergy Relief 50 MCG/ACT 1 [...] capsule Orally Onc e a day Active Immunizations Vaccine Route Administration Date Status Comme nts COVID-19 Moderna Vaccine Unknown 11/03/2021 Administered First Dose: 04/14/21 Second Dose: 03/13/21 Influenza Unknown 11/03/2021 Administered Social History Tobacco Use: Social History Observation Description Date Details (start date - stop date) Never Smoker NA - NA Tobacco Use/Smoking Question Answer Notes Are you a: nonsmoker Additional Findings: Tobacco Non-User Current no n-smoker Alcohol Screen Question Answer Notes Did you have a drink containing alcohol in the p ast year? No Points 0 Interpretation Negative Tobacco use other than smoking: Question Answer Notes Are you an other tobacco user? No Plan Of Treatment Pending Test Test Name Order Date X ray : Foot, left 3V 06/29/2021 X ray : Foot, right 3V 06/29/2021 Medical (General) History Medical History History ICD Code Anxiety asthma Back,Hip,and Knee pain Cataracts Depression Headaches/Migraines High blood pressure Chicken pox post nasal drip Cpap Sleep apnea Surgical History Surgery Date(Month/Year) breast reduction tubal ligation Oblation cataract surgery- B/L cyst removal- from tail bone tonsillectomy and adenoidectomy wisdom teeth extraction liposuction Left plantar fascitomy 08/25/2021
[2025-01-04 01:34] LABS: TS Negative Control Passed; TS Panel A 0; TS Panel B 1; TS Positive Control Passed; TSpotTB Negative (Negative)
== END 2025-01-01 08:13 | disposition home or self-care (01) ==
LOC: HO.HMGCLDS 08:12
PROVIDERS: PCP Nurse Practitioner Family; Visit Provider Nurse Practitioner Family
DX: Z11.1 Encounter for screening for respiratory tuberculosis (principal)
CPT/HCPCS: 36415; 86481

== ENCOUNTER 2025-01-14 08:53 | Outpatient (AMB) | payer MEDICARE, MEDICAID, SELFPAY ==
[2025-01-14 09:05] VITALS: BP 120/78; PULSE 72; TEMP 36.6; O2SAT 97; BMI 36.9
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
--- OUTSIDE RECORDS SUMMARY | 2025-01-14 09:47 | XMS_ITS | Data Portability ---
Author Organization [place] - [facility], Allergy Address [address] [place] [id number] Care Team Providers Care Sock Knitting Machine Operator Name Role Phone SAMANTHA YI Primary Care [...] Appointments None recorded. Lab None recorded. Referral document design specialist referral - Referral for CAP testing. Thank you. 2023 024 [email or web address] 2 [facility] Speech & Hearing [facility], [address] [place] [address] [place], [address], 08:37:06 Procedures None recorded. Surgeries None recorded. Imaging None recorded. Medication Orders None recorded. Patient TargetsNo targets recorded. Patient InstructionsNo instructions recorded. 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 Thank you. Referring Physician: Alyson Velarde, Otolaryngology, Encounter Date: 06/07/2024 Results Created Date Observation Date Name Description Value Unit Range Abnormal Flag Note LastModifiedBy Organization Detail LastModifiedTime 06/07/20 24 audio gram No observ ation record ed. [email or web address] Not Available 12/2023 13:25:58 Result Notes None recorded. Problems Name Problem SNOMED Code Status Onset Date Resolution Date Notes Provider Name and Address Organization Details Recorded Time Abnormal auditory perception 27139487 Active 2023 Lili núñez MA - [facility] 09:38:37 Bilateral tinnitus 3520031786818 Active 2023 ALYSON VELARDE PA-C [address] [place] [address], [phone] [place] [address] - [facility] 09:58:45 Problem Notes None recorded. Procedures Surgical History Date Name Laterality Status Provider Name and Address Organization Details Recorded Time Comp Audio with Tymps (70496 & 22997) completed Lili Cervantes MA - [facility] 06/07/2024 09:38:28 Cataract Surgery completed Paige Kay MA - [facility] 06/07/2024 09:31:01 ligation of bilateral fallopian tubes completed Paige Kay MA - [facility] 06/07/2024 09:31:29 Breast reduction completed Paige Kay MA - [facility] 06/07/2024 09:31:40 Imaging Results Imaging Date Name Status LastModified by Organiz ation Details LastModified Time 06/07/2024 audiogram completed [email or web address] Information n ot available 06/07/2024 13:25:58 Procedure Notes None recorded. Medical Equipment None Reported. Allergies Allergen ID Allergen Name Allergen Category Reaction Reaction Severity Criticality Documentation Date Start Date Code Code System Note Provider Name and Address Organization Details Recorded Time 838194 atenolol medicatio n Not available Not available Not available 06/07/2024 1202 RxNorm Paige núñez MA - [facility] 09:23:00 Medications Name Sig Start Date Stop [...] SNOMED-CT Code Diagnosis ICD10 Code Diagnosis Note [id number] ALYSON VELARDE PA-C [facility] [address] [place] [address] 06/07/2024 09:02:58 06/07/2024 10:00:23 Abnormal auditory perception 21226942 H93.299 Bilateral tinnitus 85904 29317 102 H93.13 20653 CINDY BOX [facility] [address] [place] [address] 06/07/2024 09:37:18 06/11/2024 07:13:21 Abnormal auditory perception 21484719 H93.299 Audiologic al evaluation results: Right ear: [...] Name 06/07/2024 2 [place] Latrice Allen [id number] Latrice Gregoriorera 06/07/2024 1 [place] [facility] Latrice Allen [id number] Latrice Gregoriorera 06/07/2024 2 [place] Latrice Allen [id number] Latrice Gregoriorera 06/07/2024 1 [place] [facility] Latrice Allen [id number] Latrice Gregoriorera Notes Date Note Type Note [...] inpatient stay with imaging. ALYSON VELARDE PA-C [address] [place] [address],[place] [address], [place], [phone], [facility] - [facility] 06/07/2024 14:15:51 OBGyn Episode No OBEpisode recorded.
--- OUTSIDE RECORDS SUMMARY | 2025-01-14 09:47 | XMS_ITS | Patient Health Record ---
Author Organization [facility] Address [address] [place] [address] Support Name Relationship Address Phone Alejandro Kehinde Emergency Contact [address] [place], [place] [id number] Latrice Allen Guarantor Unknown [phone] Care Team Providers Care Vocational Training Director Name Role Phone Neo Denny Primary Care Provider Unav ailable Carol Shaw Unavailable [phone] Allergies Allergen (clinical drug ingredient) Drug/Non Drug [...] e a day Active Probiotic Active Ipratropium [place] Active Flonase Allergy Relief 50 MCG/ACT 1 [...]
== END 2025-01-14 10:21 | disposition home or self-care (01) ==
LOC: HO.HMCC 08:53
PROVIDERS: PCP Nurse Practitioner Family; Visit Provider Nurse Practitioner Family
DX: Z00.00 Encounter for general adult medical examination without abnormal findings (principal); E55.9 Vitamin D deficiency, unspecified

== ENCOUNTER → 2025-01-14 08:53 | Outpatient (BNVA) | payer MEDICARE, MEDICAID, SELFPAY | PROVIDERS: PCP Nurse Practitioner Family; Visit Provider Nurse Practitioner Family | DX: Z00.00 Encounter for general adult medical examination without abnormal findings (principal); E55.9 Vitamin D deficiency, unspecified | CPT/HCPCS: 96127; 99396 ==